=== PATIENT | male | born 1950 | race Caucasian/White ===

== ENCOUNTER 2024-06-27 16:54 | Emergency (ER) | payer OTHER, SELFPAY ==
[2024-06-27 17:04] VITALS: BP 148/89
[2024-06-27 17:16] LABS: % Basophils 0.6 % (0-2); % Eosinophils 4.9 % (0-6); % Immature Granulocytes 0.2 % (0-0.5); % Lymphocytes 27.6 % (20.5-51.1); % Monocytes 9.7 % (1.7-9.3); Absolute Eosinophils 0.3 10^3/uL (0-0.7); Absolute Lymphocytes 1.8 10^3/uL (1.2-3.4); Absolute Monocytes 0.6 10^3/uL (0.1-0.6); Absolute Neutrophils 3.6 10^3/uL (1.4-6.5); Hematocrit 36.8 % (39.0-52.0); Hemoglobin 12.1 g/dL (13.0-18.0); Mean Corp Hgb Conc. 32.9 g/dL (33.0-37.0); Mean Corpuscular Hgb 26.6 pg (27.0-31.0); Mean Corpuscular Volume 80.9 fL (80.0-94.0); Mean Platelet Volume 9.4 fL (7.4-10.4); Nucleated Red Blood Cells % 0 % (-); Platelet Count 261 10^3/uL (130-400); Red Blood Cell Count 4.55 10^6/uL (4.70-6.10); Red Cell Dist. Width 13.9 % (11.5-14.5); White Blood Cell Count 6.4 10^3/uL (4.8-10.8)
[2024-06-27 17:36] LABS: ALT (SGPT) 43 U/L (0-50); AST (SGOT) 53 U/L (17-59); Albumin 4.8 g/dl (3.5-5.0); Alkaline Phosphatase 75 U/L (38-126); Blood Urea Nitrogen 18 mg/dl (9-20); Calcium 9.7 mg/dl (8.4-10.2); Carbon Dioxide 30 mmol/L (22-30); Chloride 104 mmol/L (98-107); Glucose 129 mg/dl (70-99); Potassium 4.1 mmol/L (3.5-5.1); Sodium 138 mmol/L (135-145); Total Bilirubin 0.6 mg/dl (0.2-1.3); Total Protein 7.5 g/dl (6.3-8.2); eGFR > 60.00
[2024-06-27 17:42] LABS: Troponin I 0.018 ng/ml
--- NOTE | 2024-06-27 18:13 | ED.GENMED ---
History of Present Illness
General
Chief Complaint: Chest Pain
Source: patient
Exam Limitations: none
Time Seen by Provider: 06/27/24 17:56
History of Present Illness
History of Present Illness:
This is a 74 year old male that comes in with c/o left sided chest discomfort. Patient states that this started last night but he took Tylenol and went to bed. States that he did sleep. Then today when he got up the discomfort came back in the
morning but then again went away. States that he went out and did some gardening. States that he came back in and said to his that he feels something and it is not a pain. States that he never feels his atrial fib. States that this discomfort
is on the left lateral chest area. Denies any fever, chills, SOB, abd pain, nausea, vomiting, diarrhea, headache, dizziness, urinary burning.
Past History
Past History
ED Past Medical History: Arrthythmia (Atrial fib), HTN, Hypercholesterolemia, NIDDM and UT
ED Past Surgical History: Cardiac (Triple bypass, ) and Other (Bilateral hernia repair)
Social History
Tobacco: Former smoker
Alcohol: None
Personal:
Living: with family
Review of Systems
Review of Systems
All Other Systems: ROS reviewed and negative except as documented in HPI and ROS
Constitutional: Reports no symptoms; Denies fever or chills
EENT: Reports no symptoms
Respiratory: Denies cough or trouble breathing
Cardiac: Reports other (denies pain but feels something)
ABD/GI: Reports no symptoms; Denies abdominal pain, nausea, vomiting or diarrhea
: Reports no symptoms; Denies dysuria, frequency or urgency
Musculoskeletal: Reports no symptoms
Skin: Reports no symptoms
Neurological: Reports no symptoms; Denies dizzy or headache
Psychiatric: Reports no symptoms
Phy Exam
General Physical Exam
General Presentation: well appearing and no apparent distress
General age: appears stated age
General Skin: dry
General Habitus: elderly
General Mental: alert
General Hydration: appears well hydrated
ENT Exam
ENT Exam: TM's normal, pharynx normal and neck supple
Eye Exam
Eye Exam: EOMI
Cardiovascular Exam
Cardiovascular Exam: no edema, normal peripheral pulses and irregularly irregular
Pulmonary Exam
Pulmonary Exam: lungs clear, no respiratory distress, no rales, chest non tender, no crackles, no rhonchi, no wheezing and no cough
Gastrointestinal Exam
Gastrointestinal Exam: normal bowel sounds, non tender, soft, no organomegaly, no pulsatile mass and non distended
Musculoskeletal Exam
Musculoskeletal Exam: full ROM and no edema
Skin Exam
Skin Exam: normal color, warm/dry, no rash and no petechia
Psychiatric Exam
Psychiatric Exam: normal mood/affect
Scores
Heart Score for Chest Pain Patients
STEMI patient?: No
History: Slightly or Non-Suspicious
ECG: Normal
Age: >/= 65 years
Risk Factors: >/= 3 Risk Factors or History of CAD
Troponin: </= Normal Limit
Heart Score for Chest Pain Patients: 4
Heart Score Risk: 20.3% MACE over next 6 weeks
Course
Orders/Labs/Results
Orders:
Orders
06/27/24 16:56
ECG [Electrocardiogram (*1)] Urgent
Reason for Study: Chest Pain
EKG- Treatment ONCE
06/27/24 17:11
Complete Blood Count/With Diff Urgent
Comprehensive Metabolic Panel Urgent
Troponin I Urgent
06/27/24 18:12
CR Chest - 2 Views Urgent
Comment:
Reason For Exam: Chest pain
06/27/24 18:13
EKG- Treatment ONCE
06/27/24 20:10
Electrocardiogram (*1) Urgent
Reason for Study: Chest Pain
Other Reason for Exam: Repeat with troponin
06/27/24 20:26
Troponin I Urgent
Abnormal Lab Results
06/27/24
17:11
RBC 4.55 L 10^6/uL
(4.70-6.10)
Hgb 12.1 L g/dL
(13.0-18.0)
Hct 36.8 L %
(39.0-52.0)
MCH 26.6 L pg
(27.0-31.0)
MCHC 32.9 L g/dL
(33.0-37.0)
Monocytes % 9.7 H %
(1.7-9.3)
Glucose 129 H mg/dl
(70-99)
06/27/24 17:11
06/27/24 17:11
H/H slightly low. Glucose nonfasting. Troponin 0.018
Second Troponin <0.012
Vital Signs
Initial and Last Documented VS:
Initial Vital Signs
Temp Pulse Resp BP Pulse Ox
98.1 F 82 16 148/89 99
06/27/24 17:04 06/27/24 17:04 06/27/24 17:04 06/27/24 17:04 06/27/24 17:04
Last Documented Vital Signs
Temp Pulse Resp BP Pulse Ox
98.1 F 75 16 150/76 99
06/27/24 17:04 06/27/24 20:16 06/27/24 18:30 06/27/24 20:16 06/27/24 20:16
MDM/Problems Addressed
Differential Diagnosis Includes:
Coronary syndrome. Musculoskeletal chest wall pain
MDM/Problems Addressed:
This is a 74 year old male that comes in with c/o left sided funny feeling. States that this is not a pain. States that this started last night but went away and then came back.
will check labs, Chest x-ray. 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 Patient can use Tylenol as needed. Return with increased or worsening discomfort.
Chronic conditions affecting care: DM and CAD
Acute Exacerbation and/or Progression of Chronic Illness: CAD
*Radiology
Radiology exam reviewed: radiology read reviewed (CHEST-No acute cardiac pulmonary process appreciated. )
*Pulse Oximetry
Patient hypoxic: no
*EKG
Interpreted by ED Provider?: Yes
Heart Rate: 65
Rate: normal
Rhythm: a-fib and PVC's
[place]: left axis deviation
QRS Pattern: normal QRS
Ischemia: no ischemia
*Adapted Physical Education Specialist Interpretation
Rate: normal
Heart Rate: 67
Rhythm: a-fib
*Critical Care Note
Total Time (30-74mins, 75-104mins- exclusive of procedures): Not Applicable
ED Attending Note
-
Portions of this chart may have been created with voice recognition software.� Occasional wrong word or��sound alike� substitutions may have occurred due to the inherent limitations of voice recognition software.
Discharge Plan
Departure
Patient Disposition: Home (Routine Discharge)
Date of Disposition: 06/27/24
Time of Disposition: 21:05
Patient with high blood pressure during this ER visit?: Yes
Condition: Good
Covid-19: Not Applicable
Discharge Problem:
Chest pain
Instructions: Chest Pain NON-DHP [employer] Operator Follow Up, BLOOD PRESSURE
Prescriptions:
No Action
magnesium 500 mg Tablet
500 mg PO DAILY
enalapril maleate 10 mg Tablet
10 mg PO DAILY
pioglitazone 45 mg Tablet
45 mg PO DAILY
tamsulosin 0.4 mg Capsule
0.4 mg PO DAILY
metformin 1,000 mg Tablet
1,000 mg PO BID
metoprolol succinate 25 mg Tablet Extended Release 24 Hr
25 mg PO DAILY
glipizide 5 mg Tablet
5 mg PO DAILY
ezetimibe [Zetia] 10 mg Tablet
10 mg PO DAILY
rosuvastatin 40 mg Tablet
40 mg PO DAILY
Eliquis 5 mg Tablet
5 mg PO BID
aspirin 81 mg Capsule
81 mg DAILY
Referrals:
Darwin Lew MD [Family Provider] - Call in 1-3 days for appt
Activity Restrictions/Additional Instructions:
As discussed, your blood work is normal. Your chest x-ray is normal. 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 You may use Tylenol as needed for pain. IF YOU HAVE INCREASED OR CHANGING PAIN, OR YOU HAVE ANY OTHER CONCERNS PLEASE RETURN
TO THE EMERGENCY ROOM.
Interventions
Interventions:
*General Assessment Last Done: 06/27/24 18:30
*Neglect/Abuse Screening Last Done: 06/27/24 18:30
ED- Fall Risk Assessment Last Done: 06/27/24 20:32
*ED COVID-19 Vaccine History Last Done: 06/27/24 20:17
ED- Cardiac Assessment Last Done: 06/27/24 20:32
Discharge Date and Time
Print Language: CUBAN
[2024-06-27 18:27] VITALS: BMI 26.6
[2024-06-27 19:00] VITALS: BP 146/84
[2024-06-27 20:16] VITALS: BP 150/76
[2024-06-27 20:59] LABS: Troponin I < 0.012 ng/ml
[2024-06-27 21:14] VITALS: BP 149/76
== END 2024-06-27 21:20 | disposition home or self-care (01) ==
LOC: EMR 16:54
PROVIDERS: Clinical Nurse Specialist Family Health; Emergency Medicine; EMERGENCY PHYSICIAN Emergency Medicine; FAMILY PHYSICIAN Internal Medicine; REFERRING PHYSICIAN Internal Medicine Cardiovascular Disease
DX: R07.89 Other chest pain (principal); I48.91 Unspecified atrial fibrillation; I10 Essential (primary) hypertension; E78.00 Pure hypercholesterolemia, unspecified; E11.9 Type 2 diabetes mellitus without complications; I25.2 Old myocardial infarction; I25.10 Atherosclerotic heart disease of native coronary artery without angina pectoris; Z87.891 Personal history of nicotine dependence
CPT/HCPCS: 99283; 71046; 80053; 84484; 85025; 93005

== ENCOUNTER → 2024-11-02 07:38 | Outpatient (REF) | payer OTHER, SELFPAY | LOC: EMG 07:38 | PROVIDERS: ATTENDING PHYSICIAN Orthopaedic Surgery; FAMILY PHYSICIAN Internal Medicine | DX: R20.0 Anesthesia of skin (principal) | CPT/HCPCS: 95886; 95909 ==

== ENCOUNTER → 2024-11-18 16:12 | Outpatient (REF) | payer OTHER, SELFPAY | LOC: RAD 16:12 | PROVIDERS: ATTENDING PHYSICIAN Internal Medicine | DX: R22.2 Localized swelling, mass and lump, trunk (principal) | CPT/HCPCS: 71270; Q9967 ==